=== PATIENT | female | born 1970 | race Caucasian/White ===

== ENCOUNTER 2021-11-25 16:31 | Emergency (ER) | payer SELFPAY ==
[2021-11-25] MEDS ORDERED: cefTRIAXone 1 GM, Lidocaine 1% 2.1 ML IM ONE ×2 (17:16)
== END 2021-11-25 18:23 | disposition home or self-care (01) ==
LOC: JP.ED 16:31
DX: N39.0 Urinary tract infection, site not specified (principal); R31.9 Hematuria, unspecified
CPT/HCPCS: 81001; 87086; 96372; 99283; J0696